=== PATIENT | female | born 1990 | race Two or more races ===

== ENCOUNTER 2024-07-24 14:36 | Emergency (ER) | payer OTHER ==
[~2024-07-24] VITALS: Ht 177.8 cm; Wt 90.0 kg
[2024-07-24 15:08] VITALS: BP 130/84; PULSE 120; RESP 16; TEMP 98.2; O2SAT 100
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
[2024-07-24] MEDS ORDERED: LIDO5DIS21 TOP (16:05)
[2024-07-24] MEDS ORDERED: METH-1181 PO (16:05)
[2024-07-24] MEDS ORDERED: IBUP-1456 PO (16:05)
== END 2024-07-24 16:10 | disposition home or self-care (01) ==
LOC: ER 14:36 → EDBD 14:36 → ER 16:10
DX: M54.59 Other low back pain (principal); Z88.8 Allergy status to other drugs, medicaments and biological substances; Z79.899 Other long term (current) drug therapy; V89.2XXA Person injured in unspecified motor-vehicle accident, traffic, initial encounter; Y93.89 Activity, other specified; Y92.89 Other specified places as the place of occurrence of the external cause; Y99.8 Other external cause status
CPT/HCPCS: 71046; 72100